=== PATIENT | female | born 1950 | race Two or more races ===

== ENCOUNTER → 2020-09-19 | Outpatient (CLI) | payer MEDICARE, OTHER ==
[~2020-09-19] MED LIST: AMLO-150 PO; ATOR40TA78 PO; GLIP5TAB10 PO; LEVO50TA5 PO; METF10007 PO
[2020-09-19 12:43] LABS: ALBUMIN 3.8 g/dL (3.4-5.0); ANION GAP 7 mmol/L (5-15); CHLORIDE 108 mmol/L (98-107)
[2020-09-19 13:04] LABS: ALANINE AMINOTRANSFERASE 37 U/L (12-78); ALKALINE PHOSPHATASE 57 U/L (45-117); BILIRUBIN,TOTAL 0.4 mg/dL (0.2-1.0); CREATININE 0.65 mg/dL (0.55-1.02); TOTAL PROTEIN 7.7 g/dL (6.4-8.2)
== END | disposition home or self-care (01) ==
LOC: STAR 11:12
PROVIDERS: ATTEND Obstetrics & Gynecology Female Pelvic Medicine and Reconstructive Surgery
DX: Z01.818 Encounter for other preprocedural examination (principal); N81.2 Incomplete uterovaginal prolapse; R10.2 Pelvic and perineal pain; N39.3 Stress incontinence (female) (male); Z20.822 Contact with and (suspected) exposure to COVID-19
CPT/HCPCS: 36415; 80053; 93005; U0003

== ENCOUNTER 2020-09-25 05:35 | Day surgery (SDC) | payer MEDICARE ==
[~2020-09-25] VITALS: Ht 149.9 cm; Wt 64.8 kg
[2020-09-25] MEDS ORDERED: LACTATED RINGERS 1,000 ML IV SCH (06:30)
[2020-09-25] MEDS ORDERED: CHLORHEXIDINE 15 ML UDC PO ONE (06:30)
[2020-09-25 06:37] VITALS: BP 169/74
[2020-09-25] MEDS ORDERED: BUPIVACAINE/PF 0.25% ONE (06:38)
[2020-09-25] MEDS ORDERED: EPINEPHRINE 1 MG/ML, 1ML ONE (06:38)
[2020-09-25] MEDS ORDERED: NEOMY/POLYMYXIN B GU IRR. 1 ML ONE (06:39)
[2020-09-25] MEDS ORDERED: FENTANYL PF 250 MCG/5ML ONE (06:40)
[2020-09-25] MEDS ORDERED: GLYCOPYRROLATE 0.2MG/1ML, 5ML ONE (06:45)
[2020-09-25] MEDS ORDERED: CEFAZOLIN 1,000 MG ONE (06:45)
[2020-09-25] MEDS ORDERED: ONDANSETRON 2MG/ML, 2ML ONE (06:45)
[2020-09-25] MEDS ORDERED: NEOSTIGMINE 1 MG/ML, 10ML ONE (06:45)
[2020-09-25] MEDS ORDERED: PROPOFOL 10 MG/ML, 20ML ONE (06:45)
[2020-09-25] MEDS ORDERED: ROCURONIUM 10MG/ML,5ML ONE (06:45)
[2020-09-25 06:52] LABS: ANION GAP 8 mmol/L (5-15); CALCIUM 9.1 mg/dL (8.5-10.1); CHLORIDE 112 mmol/L (98-107); CREATININE 0.65 mg/dL (0.55-1.02)
[2020-09-25] MEDS ORDERED: HALOPERIDOL 5 MG/ML IV PRN (07:00)
[2020-09-25] MEDS ORDERED: HYDROmorphone 1 MG/ML, 1ML INJ IVPush PRN (07:00)
[2020-09-25] MEDS ORDERED: ACETAMINOPHEN 325 MG TABLET PO PRN (07:00)
[2020-09-25] MEDS ORDERED: LABETALOL 5MG/ML, 20ML IV PRN (07:00)
[2020-09-25] MEDS ORDERED: OXYcodone 5 MG/5 ML ORAL.SOL UDC PO PRN (07:00)
[2020-09-25] MEDS ORDERED: FENTANYL PF 100 MCG/2ML IV PRN (07:00)
[2020-09-25] MEDS ORDERED: PROMETHAZINE 25 MG/ML, 1ML IVPush PRN (07:00)
[2020-09-25] MEDS ORDERED: MEPERIDINE/PF 25MG/0.5ML IVPush PRN (07:00)
[2020-09-25] MEDS ORDERED: hydrALAzine 20 MG/ML, 1ML IV PRN (07:00)
[2020-09-25] MEDS ORDERED: morphine SULFATE 10 MG/ML, 1ML IVPush PRN (07:00)
[2020-09-25] MEDS ORDERED: DEXAMETHASONE 4 MG/ML, 1ML ONE (07:28)
[2020-09-25] MEDS ORDERED: SUGAMMADEX 200 MG/2 ML IVPush ONE (07:28)
[2020-09-25] MEDS ORDERED: KETOROLAC 30 MG/1 ML ONE (07:44)
[2020-09-25] MEDS ORDERED: BUPIVACAINE/PF-EPI 0.25% 1:200K INFIL ONE (08:00)
[2020-09-25] MEDS ORDERED: FUROSEMIDE 20 MG/2 ML ONE (08:47)
[2020-09-25] MEDS ORDERED: FLUORESCEIN SODIUM 500 MG/5 ML ONE (08:47)
[2020-09-25] MEDS ORDERED: ACETAMINOPHEN 650 MG/20.3 ML UDC ONE (10:03)
[2020-09-25] MEDS ORDERED: OXYcodone 5 MG/5 ML ORAL.SOL UDC ONE (10:03)
[2020-09-25] MEDS ORDERED: MEPERIDINE/PF 25MG/ML,1ML ONE (10:03)
[2020-09-25] MEDS ORDERED: PROMETHAZINE 25 MG/ML, 1ML ONE (11:19)
== END 2020-09-25 14:45 | disposition home or self-care (01) ==
LOC: OUT 05:35
PROVIDERS: ATTEND Obstetrics & Gynecology Female Pelvic Medicine and Reconstructive Surgery
DX: N81.2 Incomplete uterovaginal prolapse (principal); N39.46 Mixed incontinence; D25.0 Submucous leiomyoma of uterus; I10 Essential (primary) hypertension; E78.5 Hyperlipidemia, unspecified; E11.9 Type 2 diabetes mellitus without complications; E03.9 Hypothyroidism, unspecified; Z79.84 Long term (current) use of oral hypoglycemic drugs; Z79.890 Hormone replacement therapy; Z79.899 Other long term (current) drug therapy
CPT/HCPCS: 57265; 57282; 57288; 58552; 80048; 82962; 88307; C1771; J0171; J0690; J1885; J1940; J2175; J2405; J2550; J2704; J2710; J3010; J7120; J1100

== ENCOUNTER → 2021-01-12 | Outpatient (CLI) | payer MEDICARE ==
[2021-01-12 14:51] LABS: ALANINE AMINOTRANSFERASE 28 U/L (12-78); ALBUMIN 3.4 g/dL (3.4-5.0); ANION GAP 7 mmol/L (5-15); CALCIUM 8.8 mg/dL (8.5-10.1); CHLORIDE 105 mmol/L (98-107); CREATININE 0.69 mg/dL (0.55-1.02)
[2021-01-12 14:53] LABS: ALKALINE PHOSPHATASE 80 U/L (45-117); BILIRUBIN,TOTAL 0.3 mg/dL (0.2-1.0); TOTAL PROTEIN 7.6 g/dL (6.4-8.2)
== END | disposition home or self-care (01) ==
LOC: STAR 13:06
PROVIDERS: ATTEND Obstetrics & Gynecology Female Pelvic Medicine and Reconstructive Surgery
DX: Z01.818 Encounter for other preprocedural examination (principal); N81.10 Cystocele, unspecified; N81.6 Rectocele; R10.2 Pelvic and perineal pain; N39.3 Stress incontinence (female) (male); R94.31 Abnormal electrocardiogram [ECG] [EKG]
CPT/HCPCS: 36415; 80053; 93005

== ENCOUNTER 2021-01-22 05:27 | Day surgery (SDC) | payer MEDICARE ==
[2021-01-12 13:43] VITALS: BP 143/86
[~2021-01-22] VITALS: Ht 149.9 cm; Wt 61.6 kg
[2021-01-22 06:18] VITALS: BP 143/86
[2021-01-22] MEDS ORDERED: CHLORHEXIDINE 15 ML UDC PO ONE (06:30)
[2021-01-22] MEDS ORDERED: LACTATED RINGERS 1,000 ML IV SCH (06:30)
[2021-01-22] MEDS ORDERED: GENTAMICIN 80 MG/2 ML ONE (06:44)
[2021-01-22] MEDS ORDERED: EPINEPHRINE 1 MG/ML, 1ML ONE (06:44)
[2021-01-22] MEDS ORDERED: BUPIVACAINE/PF 0.25% ONE (06:44)
[2021-01-22] MEDS ORDERED: VANCOMYCIN 500 MG ONE (06:44)
[2021-01-22] MEDS ORDERED: LIDOCAINE-MPF 2% ,5ML ONE (07:03)
[2021-01-22] MEDS ORDERED: FENTANYL PF 100 MCG/2ML ONE (07:03)
[2021-01-22] MEDS ORDERED: SODIUM CHLORIDE 0.9% PF 10ML ONE (07:09)
[2021-01-22] MEDS ORDERED: ACETAMINOPHEN 325 MG TABLET PO PRN (07:30)
[2021-01-22] MEDS ORDERED: EPHEDRINE 50 MG/ML, 1ML IVPush PRN (07:30)
[2021-01-22] MEDS ORDERED: PROMETHAZINE 25 MG/ML, 1ML IVPush PRN (07:30)
[2021-01-22] MEDS ORDERED: ONDANSETRON 2MG/ML, 2ML IVPush PRN (07:30)
[2021-01-22] MEDS ORDERED: FENTANYL PF 100 MCG/2ML IV PRN (07:30)
[2021-01-22] MEDS ORDERED: LABETALOL 5MG/ML, 20ML IV PRN (07:30)
[2021-01-22] MEDS ORDERED: hydrALAzine 20 MG/ML, 1ML IV PRN (07:30)
[2021-01-22] MEDS ORDERED: HYDROmorphone 1 MG/ML, 1ML INJ IVPush PRN (07:30)
[2021-01-22] MEDS ORDERED: OXYcodone 5 MG/5 ML ORAL.SOL UDC PO PRN (07:30)
[2021-01-22] MEDS ORDERED: KETOROLAC 30 MG/1 ML ONE (07:32)
[2021-01-22] MEDS ORDERED: PROPOFOL 10 MG/ML, 20ML ONE (08:06)
[2021-01-22] MEDS ORDERED: DEXAMETHASONE 4 MG/ML, 1ML ONE (08:06)
[2021-01-22] MEDS ORDERED: CEFAZOLIN 1,000 MG ONE (08:06)
[2021-01-22] MEDS ORDERED: ONDANSETRON 2MG/ML, 2ML ONE (08:06)
== END 2021-01-22 12:05 | disposition home or self-care (01) ==
LOC: OUT 05:27
PROVIDERS: ATTEND Obstetrics & Gynecology Female Pelvic Medicine and Reconstructive Surgery
DX: N81.89 Other female genital prolapse (principal); N39.46 Mixed incontinence; N81.11 Cystocele, midline; N81.6 Rectocele; N81.5 Vaginal enterocele; I10 Essential (primary) hypertension; E78.5 Hyperlipidemia, unspecified; E11.9 Type 2 diabetes mellitus without complications; E03.9 Hypothyroidism, unspecified; Z79.84 Long term (current) use of oral hypoglycemic drugs; Z79.890 Hormone replacement therapy; Z79.899 Other long term (current) drug therapy; Z98.890 Other specified postprocedural states
CPT/HCPCS: 57265; 57282; 57288; 82962; C1771; J0171; J0690; J1100; J1580; J1885; J2405; J2704; J3010; J3370; J7120